=== PATIENT | male | born 1995 | race Caucasian/White ===

== ENCOUNTER 2018-07-10 14:55 | Emergency (ER) | payer SELFPAY ==
[~2018-07-10] VITALS: Ht 165.1 cm; Wt 53.0 kg
[2018-07-10 15:00] VITALS: BP 125/82
== END 2018-07-10 17:12 | disposition left against medical advice (07) ==
LOC: ER 16:20
DX: Z53.21 Procedure and treatment not carried out due to patient leaving prior to being seen by health care provider (principal)